=== PATIENT | female | born 1980 | race Caucasian/White ===

== ENCOUNTER → 2020-11-15 11:04 | Outpatient (CLI) | payer BC, SELFPAY ==
--- NOTE | ~2020-11-15 | MM_ITS ---
EXAMINATION: MM screening ericka BI w eddi HISTORY: Screening mammogram TECHNIQUE: Craniocaudal and mediolateral oblique 3-D tomosynthesis images were obtained and synthetic 2-D images were generated. Bilateral rotated lateral cc views. CAD analysis was submitted and interp reted. COMPARISON: No prior mammogram is available for comparison at this institution. BREAST PARENCHYMAL COMPOSITION: The breasts are heterogeneously dense, which may obscure small masses . FINDINGS: Left breast: Possible 9 mm low opacity in the upper outer left breast (MLO Tomosynthesis image 15/81). 5 mm circumscribed mass in the lower outer left breast. Diagnostic left mammogram and left breast ultrasound examination are recommended. Right breast: There is no evidence of suspicious mass, calcification, or architectural distortion to suggest malignancy in either breast. There has been no suspicious interval change. IMPRESSION: 1. One or more left breast masses 2. Diagnostic left mammogram and left breast ultrasound examination are recommended. BI-RADS Category 0: Incomplete: Needs additional imaging evaluation. Reviewed, dictated and finalized at location A. IMPRESSION: 1. One or more left breast masses 2. Diagnostic left mammogram and left breast ultrasound examination are recomme nded. BI-RADS Category 0: Incomplete: Needs additional imaging evaluation.
== END ==
PROVIDERS: PCP Family Medicine; Visit Provider Obstetrics & Gynecology
DX: Z12.31 Encounter for screening mammogram for malignant neoplasm of breast (principal); R92.8 Other abnormal and inconclusive findings on diagnostic imaging of breast
CPT/HCPCS: 77063; 77067

== ENCOUNTER → 2020-12-18 09:05 | Outpatient (CLI) | payer BC, SELFPAY ==
--- NOTE | ~2020-12-18 | MMUS_ITS ---
EXAMINATION: MM diagnostic ericka LT w eddi, US breast LT complete HISTORY: One or more left breast masses suggested on 11/15/2020 screening mammogram TECHNIQUE: Additional 3-D tomosynthesis images of were performed and synthetic 2-D images were genera akin. CAD analysis was submitted and interpreted. High resolution breast ultrasound was performed. COMPARISON: 11/15/2020 bilateral digital screening mammogram BREAST PARENCHYMAL COMPOSITION: The breasts are heterogeneously dense, which may obscure small masses . FINDINGS: MAMMOGRAPHIC FINDINGS: Approximately 5 mm circumscribed mass is noted in the lower outer left breast (MLO Tomosynthesis imag e ; craniocaudal Tomosynthesis image ). ULTRASOUND: 4:00 1 cm from nipple: There is a 4.2 mm x 5.2 mm irregular hypoechoic solid lesion with adjacent vas cular color flow signal, corresponding to the mammographic finding. No posterior shadowing is noted. Ultrasound-guided biopsy is recommended considering the irregular margins. IMPRESSION: 1. 4.2 x 5.2 mm irregular hypoechoic solid lesion at 4:00 1 cm from nipple 2. Ultrasound-guided biopsy of 4:00 lesion is recommended. BI-RADS category 4, suspicious findings. Dr. Calderon telephoned the diagnostic mammogram and ultrasound report and ultrasound guided biopsy to Dr Dianna Mendo[facility] [employer] [facility] on 12/18/2020 at 1004 hours. Reviewed, dictated and finalized at location A. IMPRESSION: 1. 4.2 x 5.2 mm irregular hypoechoic solid lesion at 4:00 1 cm from nipple 2. Ultrasound-guided biopsy of 4:00 lesion is recommended. BI-RADS category 4, suspicious findings. Dr. Calderon telephoned the diagnostic mammogram and ultrasound report and ultrasou nd guided biopsy to Dr. Mendo[facility] [employer] [facility] on 12/18/2020 at 1004 h ours.
== END ==
PROVIDERS: PCP Family Medicine; Visit Provider Obstetrics & Gynecology
DX: R92.8 Other abnormal and inconclusive findings on diagnostic imaging of breast (principal)
CPT/HCPCS: 76641; 77061; 77065; G0279